=== PATIENT | female | born 1965 | race Caucasian/White ===

== ENCOUNTER → 2016-06-16 | Outpatient (CLI) | payer OTHER ==
[~2016-06-16] MED LIST: ALPR0.255 PO; ASPI81TA2 PO; ATOR40TA PO; BENA5TAB3 PO; CETI10CA19 PO; DICY10CA48 PO; FISH1CAP2 PO; FLUO15CR2 TP; FLUT9.9S EA NOSTRIL; HUM100VI3 SQ; HUM10VIA SQ; IBUP-1724 PO; MULT-543 PO; NYST10PO TOP; PANT40TA27 PO; PIOG30TA27 PO; SERT100T12 PO; SIME125T3 PO
== END ==
LOC: SS 06-09 20:00
PROVIDERS: ATTEND Nurse Practitioner
DX: G47.33 Obstructive sleep apnea (adult) (pediatric) (principal); G47.34 Idiopathic sleep related nonobstructive alveolar hypoventilation; G47.10 Hypersomnia, unspecified